=== PATIENT | female | born 1950 | race Caucasian/White ===

== ENCOUNTER 2020-04-27 14:22 | Outpatient (CLI) | payer MEDICARE, SELFPAY ==
--- NOTE | 2020-04-27 14:34 | XRR_ITS ---
PROCEDURE INFORMATION: Exam: XR Cervical Spine, 4 or 5 Views Exam date and time: 04/27/2020 2:46 PM Age: 69 years old Clinical indication: Pain; Cervicalgia; Additional info: Cervicalgia/muscle spasm TECHNIQUE: Imaging protocol: XR of the cervical spine, 4 or 5 views. COMPARISON: No relevant prior studies available. FINDINGS: Vertebrae: No fracture evident. Normal overall alignment. Moderate degenerative disc changes C5-C6 and C6-C7 with disc space narrowing and vertebral body spurring. Soft tissues: Unremarkable. XR/XR cervical spine 4-5V [id number] IMPRESSION: Lower cervical degenerative disc changes C5-C6 and C6-C7.
== END 2020-04-27 14:23 | disposition home or self-care (01) ==
LOC: RAD 14:30
PROVIDERS: PCP Nurse Practitioner Family; Visit Provider Nurse Practitioner Family
DX: M62.838 Other muscle spasm (principal); M54.2 Cervicalgia
CPT/HCPCS: 72050

== ENCOUNTER 2020-08-19 12:42 | Outpatient (CLI) | payer MEDICARE, SELFPAY ==
--- NOTE | 2020-08-19 12:40 | CT_ITS ---
WS: [id number] CT ABDOMEN AND PELVIS WITH CONTRAST HISTORY: UNSPECIFIED ABDOMINAL PAIN TECHNIQUE: Imaging performed of the abdomen and pelvis with IV contrast. Single phase imaging of the abdomen. Coronal and sagittal reformats are submitted. All CT scans at [facility] use at least one of these dose optimization techniques: automated exposure control; mA and/or kV adjustment per patient size (includes targeted exams where dose is matched to clinical indication); or iterativ e reconstruction. IV CONTRAST: Omnipaque 300; 95 mL IV. Oral contrast: Yes. DLP: 1097.54 mGycm COMPARISON: None available. Lower thorax: Lung bases are clear. Heart is normal size. Small hiatal hernia. Liver/biliary system: Normal size with no intrahepatic dilatation. Gallbladder: Status post cholecystectomy. Pancreas: Normal size pancreas. There is a small amount of air at the pancreatic head and common bile duct which may be related to a duodenal diverticulum. Small amount of air refluxing into the duct co uld also be present. There is no mass. Spleen: Normal. Adrenal glands: Normal. Right kidney: Lower pole cyst measures 1.5 cm. No obstruction. Left kidney: There are a few very small cortical hypodensities. No obstruction. Aorta: Normal. Lymphadenopathy: None. Free fluid: None. GI tract: Normal appendix. No GI tract obstruction. There is mild diffuse constipation. Abdominal wall: Unremarkable abdominal wall. No hernia. Pelvis: Normal. Bones: Grade 2 spondylolisthesis of L5 with bilateral pars defects. Severe disc space narrowing at L5 -S1. CT/CT abdomen pelvis w con* [id number] IMPRESSION: 1. Prior cholecystectomy. 2. Small hiatal hernia. 3. Mild constipation. 4. Grade 2 spondylolisthesis of L5 with spondylolysis.
[2020-08-19] MEDS: iohexol 300 mg/mL 50 mL Btl PO (13:10)
[2020-08-19] MEDS: iohexol 300 mg/mL 100 mL Btl IV (14:06)
== END 2020-08-19 12:43 | disposition home or self-care (01) ==
LOC: RADWPI 12:50
PROVIDERS: PCP Nurse Practitioner Family; Visit Provider Nurse Practitioner Family
DX: R10.9 Unspecified abdominal pain (principal); M43.16 Spondylolisthesis, lumbar region; M47.816 Spondylosis without myelopathy or radiculopathy, lumbar region; K59.00 Constipation, unspecified; K44.9 Diaphragmatic hernia without obstruction or gangrene; Z90.49 Acquired absence of other specified parts of digestive tract
CPT/HCPCS: 74177; Q9967